=== PATIENT | female | born 1945 | race Caucasian/White ===

== ENCOUNTER 2019-05-05 06:57 | Day surgery (SDC) | payer MEDICARE, OTHER ==
[2019-05-05] MEDS ORDERED: LACTATED RINGERS 1,000 ML IV ONE (07:19)
[2019-05-05] MEDS ORDERED: MIDAZOLAM 2 MG/2 ML VIAL IVP ONE (08:37)
[2019-05-05] MEDS ORDERED: fentaNYL 250 MCG/5 ML VIAL IVP ONE (08:37)
[2019-05-05 09:37] VITALS: BP 120/75
== END 2019-05-05 06:58 | disposition home or self-care (01) ==
LOC: SDS 06:57
PROVIDERS: ATTEND Internal Medicine Gastroenterology
PROC: 0DBN8ZZ Excision of Sigmoid Colon, Via Natural or Artificial Opening Endoscopic (ICD-10-PCS; principal; 2019-05-05 08:30)
DX: Z12.11 Encounter for screening for malignant neoplasm of colon (principal); D12.5 Benign neoplasm of sigmoid colon; K57.30 Diverticulosis of large intestine without perforation or abscess without bleeding
CPT/HCPCS: 45380; J3010; J7120